=== PATIENT | male | born 1955 | race Caucasian/White ===

== ENCOUNTER 2017-03-08 13:59 | Emergency (ER) | payer OTHER ==
[2017-03-08 14:08] VITALS: BP 106/75
--- NOTE | 2017-03-08 16:08 | ED HEAD/FACIAL INJ COMPLAINT ---
History of Present Illness General Chief Complaint: Laceration Procedure Stated Complaint: HIT IN HEAD WITH BRANCH/LAC Source: patient Exam Limitations: no limitations Vital Signs & Intake/Output Vital Signs & Intake/Output Vital Signs Date Time Temp Pulse Resp B/P B/P Pulse O2 O2 Flow FiO2 Mean Ox Delivery Rate 03/08 1557 Room Air 03/08 1408 98.3 117 16 106/75 95 Room Air Allergies Coded Allergies: No Known Allergies (03/08/17) Triage Note: PT HAD TREE BRANCH HIT FRONT OF HEAD, DENIES ANY LOC. HAD EMS ARRIVE, REFUSED EMS CARE. Triage Nurses Notes Reviewed? yes Onset: Abrupt Severity: mild Severity Numbers: 2 Location: frontal HPI: Patient is a 62-year-old male with a past medical history of hypertension and hyperlipidemia aortic aneurysm and DVT currently not on anticoagulation who presents to emergency and that today well mowing the lawn in his house a tree branch had fallen on the top of his head resulting in a laceration which bleeding was controlled prior to arrival. Patient currently with mild-2/ 10 localized scalp and headache symptoms. No loss consciousness had occurred. Patient is acting at baseline per . No medications given prior to arrival. Denies any neck pain and denies any blurred vision photophobia tetanus Unknown Past History Travel History Traveled to [place] past 21 day No Medical History Any Pertinent Medical History? see below for history Cardiovascular: hypertension Pneumonia Vaccine: 08/02/05 Surgical History Surgical History: non-contributory Psychosocial History Who do you live with Family What is your primary language Estonian Tobacco Use: Never used Family History Hx Contributory? No Review of Systems Review of Systems Constitutional: Reports: no symptoms. EENTM: Reports: no symptoms. Respiratory: Reports: no symptoms. Cardiovascular: Reports: no symptoms. GI: Reports: no symptoms. Genitourinary: Reports: no symptoms. Musculoskeletal: Reports: no symptoms. Skin: Reports: see HPI. Neurological/Psychological: Reports: no symptoms. Hematologic/Endocrine: Reports: see HPI, bleeding. Immunologic/Allergic: Reports: no symptoms. All Other Systems: Reviewed and Negative Physical Exam Physical Exam General Appearance: no apparent distress, alert Cranial Nerves: normal hearing, normal speech, PERRL Comments: Well-developed well-nourished person in no acute distress HEENT: Normal EENT exam, extraocular motion intact, no nystagmus. Pupils equally round and reactive to light and accommodation. Nose is atraumatic. External auditory canal and Tympanic membranes clear. Pharynx normal. No swelling or edema. Neck: Supple, no lymphadenopathy, normal range of motion without pain or tenderness No central spinous tenderness Back: Nontender, no CVA tenderness. Cardiovascular: Regular rate and rhythms no murmurs rubs or gallops, normal JVP Respiratory: Chest nontender. No respiratory distress.breath sounds clear to auscultation bilaterally Abdomen: Soft, nontender nondistended, no appreciable organomegaly. Normal bowel sounds. No ascites Extremity: No edema, no calf tenderness to palpation, normal and equal pulses. Neuro: Alert oriented x3, motor sensory normal, cranial nerves II through XII grossly intact. Skin: No appreciable rash on exposed skin, skin is warm and dry. Psych: Mood and affect is normal, memory and judgment is normal. Diagram Head: 1) Noted 1 cm clean linear subcutaneous laceration no active bleeding 2) Please amends that the laceration was 1.5 cm Progress Differential Diagnosis: c-spine injury, facial fracture, globe injury, ICH, orbit fracture, skull fracture Plan of Care: Current Medications Sig/Selene Start time Last Medication Dose Stop Time Status Admin Tetanus/Diphtheria 0.5 ML ONCE ONE 03/08 1630 UNVr Toxoids Adsorbed 03/08 1631 (Decavac) No basilar skull fractures no hemotympanum no loss of consciousness no severe mechanism injury denies any severe headache patient at this time has no concerns of ICH and now wanting of emergent CT scan of head. Laceration was repaired with dee (MARYA WHYTE) Departure Departure Disposition: HOME OR SELF CARE Condition: Stable Clinical Impression Primary Impression: Scalp laceration Referrals: JOSE WILSON,HIRAM Hubbard (PCP/Family) Additional Instructions: As discussed begin to apply bacitracin to the area once a day to prevent infection. If you NOTE signs of infection redness, pain, swelling, discharge return to the emergency room Return to the emergency room in 7 days for staple removal. If symptoms worsen or if YOU develop any new concerning symptom return to the emergency room immediately. Departure Forms: Customer Survey General Discharge Information Procedures Laceration/Wound Repair Laceration/Wound Repair: Wound Location: head Wound's Depth, Shape: linear Wound Length (cm): 1.5 Wound Explored: clean, no foreign body removed, irrigated extensively Irrigated w/ Saline (ccs): 360 Betadine Prep? Yes Suture Size/Type: dee Number of Sutures: 3 Progress: Margins were revised with staple placement bacitracin was then applied
== END 2017-03-08 16:50 ==
LOC: ERH 13:59
DX: S01.01XA Laceration without foreign body of scalp, initial encounter (principal); W20.8XXA Other cause of strike by thrown, projected or falling object, initial encounter; Y93.H9 Activity, other involving exterior property and land maintenance, building and construction; Y92.009 Unspecified place in unspecified non-institutional (private) residence as the place of occurrence of the external cause
CPT/HCPCS: 90471; 90714